=== PATIENT | female | born 1945 | race African-American/Black ===

== ENCOUNTER 2021-02-19 14:13 | Emergency (ER) | payer MEDICARE, OTHER ==
[~2021-02-19] VITALS: Ht 160 cm; Wt 86.2 kg
[~2021-02-19 14:13] MED LIST: ALLO100T PO; AMLO-489 PO; CARV25TA55 PO; CLON0.3D4 TOP; CLOP75TA28 PO; LOSA-39 PO; ONDA-143 PO; SIMV-8 PO; SITA50TA28 PO; SPIR25TA PO
[2021-02-19] MEDS ORDERED: ONDANSETRON HCL 4 MG/2 ML VIAL IV ONE (17:15)
[2021-02-19] MEDS ORDERED: MORPHINE SULFATE 4 MG/ML SYR/VIAL IV ONE (17:15)
[2021-02-19] MEDS ORDERED: IOHEXOL 350 MG/ML 100ML IJ ONE (17:22)
[2021-02-19 18:07] LABS: Basophils # (auto) 0.1 10 ^3/uL (0-0.2); Basophils % (auto) 0.9 % (0.0-2.0); Eosinophils # (auto) 0.1 10 ^3/uL (0-0.8); Hematocrit 43.1 % (36.0-46.0); Hemoglobin 13.6 g/dL (12.2-16.2); Lymphocytes # (auto) 1.1 10 ^3/uL (0.4-5.4); Lymphocytes % (auto) 17.4 % (10.0-50.0); Mean Corpuscular Hgb Conc. 31.5 g/dL (32.0-36.0); Mean Corpuscular Volume 85.8 fL (80.0-100.0); Monocytes # (auto) 0.3 10 ^3/uL (0-1.3); Monocytes % (auto) 5.4 % (0.0-12.0); Neutrophils # (auto) 4.6 10 ^3/uL (1.6-8.6); Neutrophils % (auto) 74.3 % (37.0-80.0); Nucleated Red Blood Cells % 0.2 %; Platelet Count (auto) 115 10^3/uL (140-450); Red Blood Cells 5.03 10^6/uL (4.0-5.20); Red Cell Distribution Width 18.2 % (11.8-14.3); White Blood Cell 6.1 10^3/uL (4.4-10.8)
[2021-02-19 18:23] LABS: Albumin 3.6 g/dL (3.4-5.0); Anion Gap 7 (5-15); Blood Urea Nitrogen 33 mg/dL (7-18); Calcium 8.9 mg/dL (8.5-10.1); Carbon Dioxide 20 mmol/L (21-32); Chloride 114 mmol/L (98-107); Glucose 100 mg/dL (74-106); Sodium 141 mmol/L (136-145)
[2021-02-19 18:27] LABS: Alanine Aminotransferase 23 U/L (13-56); Alkaline Phosphatase 79 U/L (45-117); Aspartate Aminotransferase 31 U/L (15-37); BUN/Creatinine Ratio 15.7; Bilirubin, Total 0.5 mg/dL (0.2-1.0); GFR African American 30 mL/min; GFR Non-African American 25 mL/min; Total Protein 7.6 g/dL (6.4-8.2)
[2021-02-19 18:45] VITALS: BP 143/76
[2021-02-19 19:18] LABS: Urine Bacteria FEW /hpf (None Seen); Urine Blood TRACE /uL (Negative); Urine Specific Gravity 1.017 (1.001-1.035); Urine WBC 7 /hpf (0 - 5)
== END 2021-02-19 19:00 | disposition short-term general hospital (02) ==
LOC: ER 14:13
DX: I11.0 Hypertensive heart disease with heart failure (principal); I50.9 Heart failure, unspecified; E11.9 Type 2 diabetes mellitus without complications; E78.5 Hyperlipidemia, unspecified; Z95.1 Presence of aortocoronary bypass graft; Z79.01 Long term (current) use of anticoagulants; Z79.899 Other long term (current) drug therapy; Z88.2 Allergy status to sulfonamides
CPT/HCPCS: 36415; 72131; 75635; 80053; 81001; 84484; 85025; 93926; 93970; 96374; 96375; 99285; J2270; J2405; Q9967

== ENCOUNTER 2023-04-20 10:39 | Emergency (ER) | payer MEDICARE, OTHER ==
[~2023-04-20] VITALS: Ht 157.5 cm; Wt 64.0 kg
[~2023-04-20 10:39] MED LIST changes: -AMLO-489 PO; +AMLO1TAB22 PO; -LOSA-39 PO; +LOSA100T58 PO; -SIMV-8 PO; +SIMV20TA20 PO
[2023-04-20 10:40] VITALS: BP 0/0; PULSE 0; RESP 0; TEMP 97.4; O2SAT 0
== END 2023-04-20 11:04 ==
LOC: ER 10:39 → EDBD 10:39 → ER 11:04
DX: I46.9 Cardiac arrest, cause unspecified (principal); R41.82 Altered mental status, unspecified; I11.0 Hypertensive heart disease with heart failure; I50.9 Heart failure, unspecified; J44.9 Chronic obstructive pulmonary disease, unspecified; E78.5 Hyperlipidemia, unspecified; E11.9 Type 2 diabetes mellitus without complications
CPT/HCPCS: 92950